=== PATIENT | female | born 1980 | race Two or more races ===

== ENCOUNTER 2019-11-16 13:03 | Emergency (ER) | payer MEDICAID ==
[~2019-11-16] VITALS: Ht 167.6 cm; Wt 81.6 kg
[2019-11-16] MEDS ORDERED: Tetanus/Diptheria/Pertussis IM ONE (13:30)
[2019-11-16] MEDS ORDERED: Lidocaine 2% MPF 5ml Vial INJ ONE (13:30)
[2019-11-16 13:35] VITALS: BP 117/69
[2019-11-16] MEDS ORDERED: Bacitracin Oint UD TOPIC ONE (14:15)
[2019-11-16] MEDS ORDERED: Tylenol #3 tab (300mg/30mg) ORAL ONE (14:15)
--- NOTE | 2019-11-16 14:19 | Emergency Room Report ---
History of Present Illness General Chief Complaint: Laceration Source: Patient Present Illness HPI 39 YO Female presents to the ED c/o 11/01 in severity pain with open laceration to the left index finger sustatined earlier today when cleaning a kitchen knife. Pt. denies taking blood thinning medications. She denies paresthesias or loss of gross motor movement of the affected finger. Pt. reports pain exacerbated with palpation. She said her last Tdap was in 2004. She is right hand dominant. The injury was unintentional. No other aggravating or relieving factors at this time. 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 Patient History Past Medical History: see triage record Past Surgical History: none Pertinent Family History: none Last Menstrual Period: 11/18/2019 Now: No Reviewed Nursing Documentation: PMH: Agreed; PSxH: Agreed Nursing Documentation-PMH Hx Asthma: Yes Review of Systems All Other Systems: negative except mentioned in HPI Physical Exam Vital Signs Date Time Temp Pulse Resp B/P (MAP) Pulse Ox O2 Delivery O2 Flow Rate FiO2 11/16/19 13:08 98.2 92 18 112/55 (74) 99 Room Air Sp02 EP Interpretation: reviewed, normal General Appearance: no apparent distress, alert, GCS 15, non-toxic Head: normocephalic, atraumatic Eyes: bilateral eye normal inspection, bilateral eye PERRL ENT: hearing grossly normal, normal voice Neck: full range of motion Respiratory: lungs clear, normal breath sounds, speaking full sentences Cardiovascular #1: regular rate, rhythm, normal capillary refill Musculoskeletal: normal range of motion, gait/station normal, non-tender Neurologic: alert, motor strength/tone normal, oriented x3, sensory intact, responsive, speech normal, grossly normal Psychiatric: judgement/insight normal Skin: laceration Procedures Laceration/Wound Repair Laceration/Wound Repair : Consent: Verbal Wound Location: upper extremity - LEFt index finger Wound Length (cm): 2 Wound Explored: clean Irrigated w/ Saline (ccs): 500 Anesthesia: 1% Lidocaine Volume Anesthetic (ccs): 5 Wound Repaired With: sutures Suture Size/Type: 5:0 Number of Sutures: 4 Layer Closure?: No Sterile Dressing Applied?: Yes Splint Applied?: Yes Type of Splint Applied: Left index finger splint Sling Applied?: No Patient Tolerated: Well Complications: None Medical Decision Making PA Attestation Dr. Angel is my supervising Physician whom patient management has been discussed with. Diagnostic Impression: Primary Impression: Laceration ER Course 39 YO Female presents to the ED c/o 11/01 in severity pain with open laceration to the left index finger sustatined earlier today when cleaning a kitchen knife. Pt. denies taking blood thinning medications. She denies paresthesias or loss of gross motor movement of the affected finger. Pt. reports pain exacerbated with palpation. She said her last Tdap was in 2004. She is right hand dominant. The injury was unintentional. No other aggravating or relieving factors at this time. Ddx considered but are not limited to laceration, tendon injury, cellulitis, amputation Vital signs: are WNL, pt. is afebrile H&PE are most consistent with: Left index finger laceration approx 3 cm in length ORDERS: none required at this time, the diagnosis is clinical ED INTERVENTIONS: -Tetanus vaccine was administered as pt. vaccination status was unknown. - The wound was copiously irrigated with normal saline, and explored for foreign body for which no FB was found. - pt. is anesthetized with 1%lidocaine - The wound was approximated and closed using 4 interrupted 5.0 Ethilon sutures. -Bacitracin and sterile dressing is applied. - Finger Splint applied to the Left index finger by echocardiography technologist. Pt. remains neurovascularly intact. Discussed with patient: That we make every effort to approximate the laceration as best as we can so that scarring will be as cosmetically pleasing as possible with our limited cosmetic skill set in the Emergency dept. Regardless of our best efforts there will be scarring after laceration repair. The extent of scarring is unknown at this time. DISCHARGE: At this time pt. is stable for d/c to home. Will provide printed patient care instructions, and any necessary prescriptions. Care plan and follow up instructions have been discussed with the patient prior to discharge. Last Vital Signs Date Time Temp Pulse Resp B/P (MAP) Pulse Ox O2 Delivery O2 Flow Rate FiO2 11/16/19 13:35 98.2 83 19 117/69 98 Room Air Disposition: HOME, SELF-CARE Condition: Stable Scripts Acetaminophen With Codeine (T#3) (TYLENOL #3 TAB*) Y Tab 1 TAB ORAL Q8HR PRN for For Pain, #9 TAB Prov: Nallely Colon 11/16/19 Bacitracin (Bacitracin) 28.4 Gm Oint...g. 1 APPLIC TOPIC THREE TIMES A DAY, #28.3 GM Prov: Nallely Colon 11/16/19 Cephalexin* (KEFLEX*) 500 Mg Capsule 500 MG ORAL EVERY 12 HOURS for 7 Days, #14 CAP 0 Refills Prov: Nallely Colon 11/16/19 Referrals: NOT CHOSEN IPA/,REFERRING (PCP) Edilberto Moyer [facility] Patient Instructions: Laceration Care, Adult Additional Instructions: Take medications as directed. Sutures to be removed in 14 days Do not drink alcohol, drive, or operate heavy machinery while taking Tylenol # 3 as this may cause drowsiness. Follow up with a Primary Care Provider in 3-5 days, even if your symptoms have resolved. --Please review list of primary care clinics, if you do not already have a primary care provider Return sooner to ED if new symptoms occur, or current symptoms become worse. - Please note that this Emergency Department Report was dictated using [employer]'scircular stuffer technology software, occasionally this can lead to erroneous entry secondary to interpretation by the dictation equipment. Nallely Colon Nov 16, 2019 14:19
[2019-11-16] MEDS ORDERED: ACETAMINOPHEN-1 EAC1 ORAL (14:20)
[2019-11-16] MEDS ORDERED: BACITRACIN15 GM TOPIC (14:20)
[2019-11-16] MEDS ORDERED: CEPHALEXIN500 MG ORAL (14:20)
[2019-11-16 14:39] VITALS: BP 126/72
== END 2019-11-16 14:40 | disposition home or self-care (01) ==
LOC: EMR 13:24
DX: S61.211A Laceration without foreign body of left index finger without damage to nail, initial encounter (principal); Z23 Encounter for immunization; W26.0XXA Contact with knife, initial encounter; Y92.9 Unspecified place or not applicable
CPT/HCPCS: 12001; 90471; 90715; Z7502; 99283

== ENCOUNTER 2019-11-30 13:41 | Emergency (ER) | payer MEDICAID ==
[~2019-11-30] VITALS: Ht 154.9 cm; Wt 81.6 kg
[~2019-11-30 13:41] MED LIST: ACETAMINOPHEN-1 EAC1 ORAL; BACITRACIN15 GM TOPIC; CEPHALEXIN500 MG ORAL
[2019-11-30 14:21] VITALS: BP 102/61
--- NOTE | 2019-11-30 14:22 | NUR ---
ED Nurse Note: Patient presents to ER due to suture removal from the left index finger. Slight swelling and redness noted. No red streaks noted from the wound. Patient reports tenderness on the affected finger with fever x 2 days. Patient has been using inhaler every 4hrs for the past 3-4 days and having bodyache. Reports no cough or SOB with exertion. RN able to hear audible, abnormal breath sounds, tight /wheezing. Pulse oximetry reading on room air was 100 with RR 19. Placed patient on ekg monitor tech. Bed in lowest position.
--- NOTE | 2019-11-30 14:45 | NUR ---
ED Nurse Note: Dr. Mosquera notified that patient has been using inhaler every 4hr for the past 3 days, fever (taking Tylenol, last taken 0630), bodyache.
[2019-11-30] MEDS ORDERED: Doxycycline Monohydrate 100mg ORAL ONE (15:00)
[2019-11-30 15:02] LABS: ANION GAP 11 mmol/L (5-15); BLOOD UREA NITROGEN 16 mg/dL (7-18); CALCIUM 8.1 MG/DL (8.5-10.1); CARBON DIOXIDE 22 MMOL/L (21-32); CHLORIDE 107 MMOL/L (98-107); CREATININE 0.7 MG/DL (0.55-1.30); POTASSIUM 4.4 MMOL/L (3.5-5.1); SODIUM 140 MMOL/L (136-145)
[2019-11-30 15:07] LABS: ALANINE AMINOTRANSFERASE 17 U/L (12-78); ALBUMIN 3.6 G/DL (3.4-5.0); ALKALINE PHOSPHATASE 79 U/L (46-116); ASPARTATE AMINO TRANSFERASE 23 U/L (15-37); BILIRUBIN,TOTAL 0.2 MG/DL (0.2-1.0)
--- NOTE | 2019-11-30 15:07 | NUR ---
ED Nurse Note: Checked with MD and will wait for result before administering med.
[2019-11-30 15:11] LABS: BASOPHILS % (AUTO) 1.1 % (0.0-2.0); EOSINOPHILS % (AUTO) 5.9 % (0.0-3.0); HEMATOCRIT 38.8 % (37.0-47.0); HEMOGLOBIN 12.3 G/DL (12.0-16.0); LYMPHOCYTES % (AUTO) 25.6 % (20.0-45.0); MEAN CORPUSCULAR VOLUME 84 FL (80-99); MONOCYTES % (AUTO) 5.2 % (1.0-10.0); NEUTROPHILS % (AUTO) 62.4 % (45.0-75.0); PLATELET COUNT 352 K/UL (150-450); RED BLOOD COUNT 4.62 M/UL (4.20-5.40); RED CELL DISTRIBUTION WIDTH 13.7 % (11.6-14.8); WHITE BLOOD COUNT 7.5 K/UL (4.8-10.8)
--- NOTE | 2019-11-30 15:12 | Emergency Room Report ---
History of Present Illness General Chief Complaint: Asthma Source: Patient Present Illness HPI This patient has 2 separate complaints. The patient states that 2 weeks ago she suffered a laceration to her left index finger. She had sutures placed at that time. It has been 14 days and she has not had the sutures removed yet. She states that she is having pain in her finger and has developed some redness. She also states that for the past 3 days she has noted body aches, cough and fatigue. She does have a history of asthma. She states she has had fever today. She did take Tylenol earlier today. She states that she does not know of any specific COVID-19 contacts. There are no other family members with any symptoms. She has been using her home albuterol inhaler. She still feels short of breath at times. She denies headache or neck pain. She denies weakness. She denies chest pain. She denies abdominal pain. She has nausea or vomiting. She has no other complaints. 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 Patient History Past Medical History: see triage record, asthma Social History: Denies: smoking, alcohol use, drug use Last Menstrual Period: 11/02/19 Now: No Reviewed Nursing Documentation: PMH: Agreed; PSxH: Agreed Nursing Documentation-PMH Past Medical History: No History, Except For Hx Asthma: Yes Review of Systems All Other Systems: negative except mentioned in HPI Physical Exam Vital Signs Date Time Temp Pulse Resp B/P (MAP) Pulse Ox O2 Delivery O2 Flow Rate FiO2 11/30/19 13:50 99.0 87 22 104/66 (79) 96 Room Air Sp02 EP Interpretation: reviewed, normal General Appearance: no apparent distress, alert, GCS 15, non-toxic Head: normocephalic, atraumatic Eyes: bilateral eye normal inspection, bilateral eye PERRL ENT: hearing grossly normal, normal pharynx, no angioedema, normal voice Neck: full range of motion, supple/symm/no masses Respiratory: chest non-tender, no respiratory distress, no retraction, no accessory muscle use, speaking full sentences, wheezing - Slight wheezing in the R. Lung throughout. Cardiovascular #1: regular rate, rhythm, no edema Gastrointestinal: normal bowel sounds, non tender, soft, non-distended, no guarding, no rebound Rectal: deferred Musculoskeletal: back normal, normal range of motion, gait/station normal, non- tender Neurologic: alert, motor strength/tone normal, oriented x3, sensory intact, responsive, speech normal Psychiatric: judgement/insight normal, memory normal, mood/affect normal, no suicidal/homicidal ideation Skin: other - L. index finger sutures in place, a small amount of erythema around proximal aspect of sutures (see photo in EMR) Medical Decision Making Diagnostic Impression: Primary Impression: Cellulitis Additional Impression: Asthma exacerbation ER Course This patient has a early cellulitis developing at the location of the previous laceration that was sutured 14 days ago. The erythema is only slightly surrounding the sutures. The sutures were removed and the wound was soaked warm water. The patient was given oral doxycycline. She also had some wheezing on her lung exam. She is given albuterol nebulizer treatment. Chest x -ray was within normal limits. Given the patient's respiratory symptoms and her presentation during a COVID-19 pandemic, a rapid COVID-19 test was obtained and was negative. The patient then underwent albuterol nebulizer treatment. Patient's oxygen saturation was 100% on room air during her ED course. Overall , the patient was well-appearing and nontoxic without any evidence of respiratory distress. The patient cellulitis is mild. I will place the patient on a course of antibiotics for the finger cellulitis. She is also given very close return precautions. Given the infection, I will not place the patient on a course of steroids for her asthma, as her asthma is very mild. Overall, the patient is well-appearing. She is given close close return precautions and follow-up instructions. This patient was evaluated in the context of the global COVID-19 pandemic, which necessitated consideration that the patient might be at risk for infection with the [id number] virus that causes COVID-19. Institutional protocols and algorithms that pertain to the evaluation of patients at risk for COVID-19 and the state of rapid change based on information released by multiple regulatory bodies including the CDC and federal and state organizations. These policies and algorithms were followed during the patient' s care in the ED. Laboratory Tests Test 11/30/19 14:20 White Blood Count 7.5 K/UL (4.8-10.8) Red Blood Count 4.62 M/UL (4.20-5.40) Hemoglobin 12.3 G/DL (12.0-16.0) Hematocrit 38.8 % (37.0-47.0) Mean Corpuscular Volume 84 FL (80-99) Mean Corpuscular Hemoglobin 26.5 PG (27.0-31.0) L Mean Corpuscular Hemoglobin Concent 31.6 G/DL (32.0-36.0) L Red Cell Distribution Width 13.7 % (11.6-14.8) Platelet Count 352 K/UL (150-450) Mean Platelet Volume 5.9 FL (6.5-10.1) L Neutrophils (%) (Auto) 62.4 % (45.0-75.0) Lymphocytes (%) (Auto) 25.6 % (20.0-45.0) Monocytes (%) (Auto) 5.2 % (1.0-10.0) Eosinophils (%) (Auto) 5.9 % (0.0-3.0) H Basophils (%) (Auto) 1.1 % (0.0-2.0) Sodium Level 140 MMOL/L (136-145) Potassium Level 4.4 MMOL/L (3.5-5.1) Chloride Level 107 MMOL/L (98-107) Carbon Dioxide Level 22 MMOL/L (21-32) Anion Gap 11 mmol/L (5-15) Blood Urea Nitrogen 16 mg/dL (7-18) Creatinine 0.7 MG/DL (0.55-1.30) Estimated Glomerular Filtration Rate > 60 mL/min (>60) Glucose Level 124 MG/DL (74-106) H Calcium Level 8.1 MG/DL (8.5-10.1) L Total Bilirubin 0.2 MG/DL (0.2-1.0) Aspartate Amino Transferase (AST) 23 U/L (15-37) Alanine Aminotransferase (ALT) 17 U/L (12-78) Alkaline Phosphatase 79 U/L (46-116) Total Protein 7.3 G/DL (6.4-8.2) Albumin 3.6 G/DL (3.4-5.0) Globulin 3.7 g/dL Albumin/Globulin Ratio 1.0 (1.0-2.7) Human Chorionic Gonadotropin, Qual Pending Microbiology Date/Time Source Procedure Growth Status 11/30/19 14:33 Nasopharynx SARS-CoV-2 RdRp Gene Assay - Final Complete Rhythm Strip Diag. Results EP Interpretation: yes Rate: 70's Rhythm: NSR, no PVC's, no ectopy Chest X-Ray Diagnostic Results Chest X-Ray Diagnostic Results : Chest X-Ray Ordered: Yes # of Views/Limited/Complete: 1 View Indication: Shortness of Breath EP Interpretation: Yes Interpretation: no consolidation, no effusion, no pneumothorax, no acute cardiopulmonary disease Impression: No acute disease Electronically Signed by: Aisha Mosquera DO Last Vital Signs Date Time Temp Pulse Resp B/P (MAP) Pulse Ox O2 Delivery O2 Flow Rate FiO2 11/30/19 14:22 76 21 Room Air 11/30/19 14:21 97.9 102/61 99 Status: improved Disposition: HOME, SELF-CARE Condition: Improved Referrals: NOT CHOSEN IPA/MD,REFERRING (PCP) Patient Instructions: Asthma, Adult Aisha Mosquera DO Nov 30, 2019 15:12
[2019-11-30] MEDS ORDERED: Albuterol ud Inhalation HHN ONE (15:30)
--- NOTE | 2019-11-30 15:39 | NUR ---
ED Nurse Note: The sutures from left index finger removed by Luis TABARES and soaked the affected finger in warm water as ordered. RT at bedside and providing breathing tx.
[2019-11-30 15:41] VITALS: BP 99/64
[2019-11-30] MEDS ORDERED: ALBUTEROL2.5 MG/3 M HHN (15:52)
[2019-11-30] MEDS ORDERED: ALBUTEROL SULF8.5 G1 INH (15:52)
[2019-11-30] MEDS ORDERED: DOXYCYCLINE MO100 MG ORAL (15:52)
--- NOTE | 2019-11-30 16:10 | NUR ---
ED Nurse Note: Patient reports feeling better with breathing after tx. Patient has regular, unlabored breathing noted with pulse oximetry reading >94%. No audible abnormal breath sounds noted. Skin remained pink. Dried left index finger and applied bandage as ordered.
[2019-11-30 16:12] VITALS: BP 108/62
--- NOTE | 2019-11-30 16:14 | NUR ---
ED Nurse Note: No 2019 Novel Munoz Virus test cancled at this time per ERMD. Patient is being dischraged from medical care. Patient reports breathing better at this time. No audible abnormal breath sounds noted. D/C instruction given and prescription sent electronically. All questions were answered. Patient ambulated out with steady gait with all her belongings.
--- NOTE | 2019-11-30 16:26 | Diagnostic Imaging Report ---
Indication: Cough Technique: One view of the chest Comparison: none Findings: Lungs and pleural spaces are clear. Heart size is normal. Impression: No acute process
== END 2019-11-30 16:20 | disposition home or self-care (01) ==
LOC: EMR 14:20
DX: S61.211A Laceration without foreign body of left index finger without damage to nail, initial encounter (principal); L03.012 Cellulitis of left finger; J45.901 Unspecified asthma with (acute) exacerbation; X58.XXXA Exposure to other specified factors, initial encounter; Y92.9 Unspecified place or not applicable
CPT/HCPCS: 36415; 71045; 80053; 84703; 85025; 94640; U0002; Z7502; 99284

== ENCOUNTER 2020-02-27 15:45 | Emergency (ER) | payer MEDICAID ==
[~2020-02-27] VITALS: Ht 157.5 cm; Wt 82.6 kg
[~2020-02-27 15:45] MED LIST changes: +ALBUTEROL SULF8.5 G1 INH; +ALBUTEROL2.5 MG/3 M HHN; +DOXYCYCLINE MO100 MG ORAL
[2020-02-27 16:00] VITALS: BP 118/68
[2020-02-27] MEDS ORDERED: Albuterol/Ipratropium 3ml neb HHN SCH (17:15)
--- NOTE | 2020-02-27 17:29 | Diagnostic Imaging Report ---
Indication: Shortness of breath, asthma Technique: One view of the chest Comparison: 2019 Findings: Lungs and pleural spaces are clear. Heart size is normal. 6 no significant interim change Impression: No acute process
--- NOTE | 2020-02-27 17:36 | Emergency Room Report ---
History of Present Illness General Chief Complaint: Asthma Source: Patient Present Illness HPI 39-year-old female with history of asthma currently taking albuterol here complaining of 3 days of with worsening asthma. Also complains of diarrhea. Denies any fever chills, abdominal pain, nausea vomiting. Reports her albuterol inhaler has not been helping her in the past few days. Denies coming contact with anyone who is positive for call back. Reports that she had a negative flu test 2 months ago. Denies tobacco smoke, drug use, alcohol intake. Denies . Has not taken medication for symptom relief. 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 COVID-19 Screening: Negative COVID-19 COVID-19 Testing Source: 2WKS AGO @ [facility] [place] Patient History Past Medical History: see triage record Past Surgical History: none Pertinent Family History: none Last Menstrual Period: ON IT Now: No Immunizations: UTD Reviewed Nursing Documentation: PMH: Agreed; PSxH: Agreed Nursing Documentation-PMH Hx Asthma: Yes Review of Systems All Other Systems: negative except mentioned in HPI Physical Exam Vital Signs Date Time Temp Pulse Resp B/P (MAP) Pulse Ox O2 Delivery O2 Flow Rate FiO2 02/27/20 15:50 98.4 81 22 112/66 (81) 96 Room Air 02/27/20 16:00 98 Sp02 EP Interpretation: reviewed, normal General Appearance: no apparent distress, alert, GCS 15, non-toxic Head: normocephalic, atraumatic Eyes: bilateral eye normal inspection, bilateral eye PERRL ENT: hearing grossly normal, normal pharynx, no angioedema, normal voice Neck: full range of motion, supple/symm/no masses Respiratory: chest non-tender, lungs clear, normal breath sounds, no rhonchi, speaking full sentences, wheezing Cardiovascular #1: regular rate, rhythm, no edema Cardiovascular #2: 2+ carotid (R), 2+ carotid (L), 2+ radial (R), 2+ radial (L), 2+ dorsalis pedis (R), 2+ dorsalis pedis (L) Gastrointestinal: non tender, soft Rectal: deferred Genitourinary: no CVA tenderness Musculoskeletal: back normal, no calf tenderness Neurologic: alert, motor strength/tone normal, oriented x3, sensory intact, responsive, speech normal Psychiatric: judgement/insight normal, memory normal, mood/affect normal, no suicidal/homicidal ideation Skin: no rash Lymphatic: no adenopathy Medical Decision Making PA Attestation Diagnosis and treatment plans were reviewed and discussed with my supervising physician Dr. Dudley Diagnostic Impression: Primary Impression: Asthma exacerbation Additional Impression: URI (upper respiratory infection) ER Course 39-year-old female with history of asthma currently taking albuterol here complaining of 3 days of with worsening asthma. Also complains of diarrhea. Denies any fever chills, abdominal pain, nausea vomiting. Reports her albuterol inhaler has not been helping her in the past few days. Denies coming contact with anyone who is positive for call back. Reports that she had a negative flu test 2 months ago. Denies tobacco smoke, drug use, alcohol intake. Denies . Has not taken medication for symptom relief. Ddx considered but are not limited to: bronchitis, PNA, URI viral, bacterial bronchitis, coronavirus, asthma exacerbation Vital signs: are WNL, pt. is afebrile H&PE are most consistent with: Asthma exacerbation, URI ORDERS: Rapid covert test, chest x-ray, prednisone, Phenergan, azithromycin, albuterol ED INTERVENTIONS: 3 treatments breathing treatment DISCHARGE: At this time pt. is stable for d/c to home. Will provide printed patient care instructions, and any necessary prescriptions. Care plan and follow up instructions have been discussed with the patient prior to discharge. Patient take medication as directed, follow primary care provider, worsening symptoms return to the emergency room Chest X-Ray Diagnostic Results Chest X-Ray Diagnostic Results : Chest X-Ray Ordered: Yes # of Views/Limited/Complete: 1 View Indication: Shortness of Breath EP Interpretation: Yes VASQUEZ Xray: Interpretation reviewed, by supervising MD, and agrees with findings. Interpretation: no consolidation, no effusion, no pneumothorax Impression: No acute disease Electronically Signed by: Kelvin Yeung PA-C Last Vital Signs Date Time Temp Pulse Resp B/P (MAP) Pulse Ox O2 Delivery O2 Flow Rate FiO2 02/27/20 17:22 77 18 100 Room Air 21 02/27/20 16:00 98.4 118/68 Disposition: HOME, SELF-CARE Condition: Stable Scripts Promethazine Hcl (PROMETHAZINE HCL*) 6.25 Mg/5 Ml Syrup 5 ML ORAL Q6H, #120 ML 0 Refills Prov: Kelvin Sandy 02/27/20 Azithromycin* (ZITHROMAX*) 250 Mg Tablet 250 MG ORAL DAILY, #6 TAB 0 Refills Take two tables once daily for 1 day, then one tablet once daily for 4 days. Prov: Kelvin Sandy 02/27/20 Prednisone* (PREDNISONE*) 20 Mg Tablet 40 MG ORAL DAILY for 5 Days, #10 TAB Prov: Kelvin Sandy 02/27/20 Albuterol Sulfate (VENTOLIN HFA) 18 Gm Hfa.aer.ad 2 PUFFS INH EVERY 6 HOURS, #18 GM 0 Refills Prov: Kelvin Sandy 02/27/20 Patient Instructions: Asthma, Adult, Upper Respiratory Infection, Adult, Easy -to-Read Additional Instructions: Take medication as directed, follow-up with primary care provider, if worsening symptom return to the emergency room Kelvin Sandy Feb 27, 2020 17:36
[2020-02-27] MEDS ORDERED: PREDNISONE20 MG ORAL (17:37)
[2020-02-27] MEDS ORDERED: VENTOLIN HFA18 GM INH (17:37)
[2020-02-27] MEDS ORDERED: ZITHROMAX250 MG ORAL (17:37)
[2020-02-27] MEDS ORDERED: PROMETHAZI6.25 MG/1 ORAL (17:38)
[2020-02-27 17:53] VITALS: BP 127/69
== END 2020-02-27 17:53 | disposition home or self-care (01) ==
LOC: EMR 16:20
DX: J45.901 Unspecified asthma with (acute) exacerbation (principal); J06.9 Acute upper respiratory infection, unspecified; R19.7 Diarrhea, unspecified
CPT/HCPCS: 71045; 94640; U0002; Z7502; 99284; J7620

== ENCOUNTER 2020-03-23 15:20 | Emergency (ER) | payer MEDICAID ==
[~2020-03-23] VITALS: Ht 157.5 cm; Wt 81.6 kg
[~2020-03-23 15:20] MED LIST changes: +PREDNISONE20 MG ORAL; +PROMETHAZI6.25 MG/1 ORAL; +VENTOLIN HFA18 GM INH; +ZITHROMAX250 MG ORAL
[2020-03-23 15:31] VITALS: BP 115/77
--- NOTE | 2020-03-23 16:22 | Emergency Room Report ---
History of Present Illness General Chief Complaint: Asthma Source: Patient Present Illness HPI 39-year-old female with history of asthma who was recently here at [facility] for asthma exacerbation here complaining of another episode of asthma exacerbation. 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 Denies tobacco smoke or drug use. Reports that she now has brownish phlegm coming out. Last time patient was here beginning of February, breathing treatment was given and patient was discharged with prednisone and azithromycin. Denies any fever and chills, diarrhea, loss of taste and smell. Has not yet followed primary doctor reported she does not have one. Denies . Allergies: Coded Allergies: No Known Allergies (Unverified , 11/16/19) COVID-19 Screening Contact w/high risk pt: No Recent Travel to affected area: No Experienced COVID-19 symptoms?: No COVID-19 Testing performed [employer]UNA [employer]AT: No Patient History Past Medical History: see triage record Past Surgical History: none Pertinent Family History: none Now: No Immunizations: UTD Reviewed Nursing Documentation: PMH: Agreed; PSxH: Agreed Nursing Documentation-PMH Past Medical History: No History, Except For Hx Asthma: Yes Review of Systems All Other Systems: negative except mentioned in HPI Physical Exam Vital Signs Date Time Temp Pulse Resp B/P (MAP) Pulse Ox O2 Delivery O2 Flow Rate FiO2 03/23/20 15:23 98.8 102 19 115/77 (90) 96 Sp02 EP Interpretation: reviewed General Appearance: no apparent distress, alert, GCS 15, non-toxic Head: normocephalic, atraumatic ENT: hearing grossly normal, normal pharynx, no angioedema, normal voice Neck: full range of motion, supple/symm/no masses Respiratory: chest non-tender, normal breath sounds, no rhonchi, speaking full sentences, wheezing - Diffuse wheezing Cardiovascular #1: regular rate, rhythm, no edema Cardiovascular #2: 2+ carotid (R), 2+ carotid (L), 2+ radial (R), 2+ radial (L), 2+ dorsalis pedis (R), 2+ dorsalis pedis (L) Gastrointestinal: normal bowel sounds, non tender, soft, non-distended, no guarding, no rebound Genitourinary: no CVA tenderness Musculoskeletal: back normal, no calf tenderness Neurologic: alert, motor strength/tone normal, oriented x3, sensory intact, responsive, speech normal Psychiatric: judgement/insight normal, memory normal, mood/affect normal, no suicidal/homicidal ideation Skin: no rash Lymphatic: no adenopathy Procedures Critical Care Time Critical Care Time Total critical care time; approximately 30 minutes. Due to a high probability of clinically significant, life threatening deterioration, the patient required my highest level of preparedness to intervene emergently and I personally spent this critical care time directly and personally managing the patient. This critical care time included obtaining a history; examining the patient; pulse oximetry; ordering and reviewing of studies; arranging urgent treatment with development of a management plan; evaluation of patient's response to treatment; frequent reassessment; and, discussions with other providers. This critical care time was performed to assess and manage the high probability of imminent, life-threatening deterioration that could result in multiorgan failure it was exclusive of separate billable procedures and treating other patients and teaching time. Please see MDM section and the rest of the note for further information on patient assessment and treatment. Medical Decision Making PA Attestation All my diagnosis and treatment plans were reviewed ad discussed with my supervising physician Dr. Malik Diagnostic Impression: Primary Impression: Asthma exacerbation Additional Impression: URI (upper respiratory infection) ER Course 39-year-old female with history of asthma who was recently here at [facility] for asthma exacerbation here complaining of another episode of asthma exacerbation. 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 Denies tobacco smoke or drug use. Reports that she now has brownish phlegm coming out. Last time patient was here beginning of February, breathing treatment was given and patient was discharged with prednisone and azithromycin. Denies any fever and chills, diarrhea, loss of taste and smell. Has not yet followed primary doctor reported she does not have one. Denies . Ddx considered but are not limited to: bronchitis, PNA, URI viral, bacterial bronchitis, coronavirus pneumonia, asthma exacerbation Vital signs: are WNL, pt. is afebrile H&PE are most consistent with: asthma exacerbation, URI ORDERS: Chest x-ray, rapid Covid, prednisone, Augmentin, Phenergan, albuterol ED INTERVENTIONS: 3 3 treatments of albuterol ipratropium, dexamethasone IM DISCHARGE: At this time pt. is stable for d/c to home. Will provide printed patient care instructions, and any necessary prescriptions. Care plan and follow up instructions have been discussed with the patient prior to discharge. Take medication as directed, follow with your primary care provider for further evaluation referral to tie presser due to your numbers asthma exacerbation in the past few months. If worsening symptoms return to the emergency room Chest X-Ray Diagnostic Results Chest X-Ray Diagnostic Results : Chest X-Ray Ordered: Yes # of Views/Limited/Complete: 1 View Indication: Shortness of Breath EP Interpretation: Yes VASQUEZ Xray: Interpretation reviewed, by supervising MD, and agrees with findings. Interpretation: no consolidation, no effusion, no pneumothorax Impression: No acute disease Electronically Signed by: Kelvin Hyattibhenry Text Procedure: XRAY Chest 1v Indication: Shortness of breath Technique: One view of the chest Comparison: 02/27/2020 Findings: Lungs and pleural spaces are clear. Heart size is normal. 16 is no significant interim change Impression: No acute process Last Vital Signs Date Time Temp Pulse Resp B/P (MAP) Pulse Ox O2 Delivery O2 Flow Rate FiO2 03/23/20 15:31 102 19 03/23/20 15:31 98.8 115/77 96 Disposition: HOME, SELF-CARE Condition: Stable Referrals: NOT CHOSEN IPA/,REFERRING (PCP) Patient Instructions: Asthma, Adult, Upper Respiratory Infection, Adult, [id number] Additional Instructions: Take medication as directed, follow with your primary care provider for further evaluation referral to tie presser due to your numbers asthma exacerbation in the past few months. If worsening symptoms return to the emergency room Kelvin Sandy Mar 23, 2020 16:22
--- NOTE | 2020-03-23 16:47 | Diagnostic Imaging Report ---
Indication: Shortness of breath Technique: One view of the chest Comparison: 02/27/2020 Findings: Lungs and pleural spaces are clear. Heart size is normal. 16 is no significant interim change Impression: No acute process
[2020-03-23] MEDS: Albuterol/Ipratropium 3ml neb HHN SCH ×2 (17:00→17:01)
[2020-03-23] MEDS ORDERED: AUGMENTIN 875-1 EAC1 ORAL (17:02)
[2020-03-23] MEDS ORDERED: PREDNISONE20 MG ORAL (17:02)
[2020-03-23] MEDS ORDERED: VENTOLIN HFA18 GM INH (17:02)
[2020-03-23] MEDS ORDERED: PROMETHAZI6.25 MG/1 ORAL (17:02)
[2020-03-23 17:35] VITALS: BP 123/79
== END 2020-03-23 17:35 | disposition home or self-care (01) ==
LOC: EMR 15:41
DX: J45.901 Unspecified asthma with (acute) exacerbation (principal); J06.9 Acute upper respiratory infection, unspecified
CPT/HCPCS: 71045; 94640; 96372; J1100; U0002; Z7502; 99291; J7620

== ENCOUNTER 2020-04-27 09:30 | Emergency (ER) | payer MEDICAID ==
[~2020-04-27] VITALS: Ht 157.5 cm; Wt 81.6 kg
[~2020-04-27 09:30] MED LIST changes: +AUGMENTIN 875-1 EAC1 ORAL
[2020-04-27 10:24] VITALS: BP 109/70
--- NOTE | 2020-04-27 10:28 | NUR ---
ED Nurse Note:pt. came from home with c/o fevers and respiratory infection with chest congestion for 1 week, no fever on arrival
[2020-04-27] MEDS ORDERED: Albuterol/Ipratropium 3ml neb HHN ONE (10:30)
--- NOTE | 2020-04-27 10:40 | NUR ---
ED Nurse Note:covid test sent to labs, given PO test
[2020-04-27] MEDS ORDERED: PROMETHAZI6.25 MG/1 ORAL (11:49)
[2020-04-27] MEDS ORDERED: PREDNISONE20 MG ORAL (11:49)
[2020-04-27] MEDS ORDERED: VENTOLIN HFA18 GM INH (11:49)
[2020-04-27] MEDS ORDERED: ZITHROMAX250 MG ORAL (11:49)
[2020-04-27 12:10] VITALS: BP 111/72
--- NOTE | 2020-04-27 12:10 | NUR ---
ED Nurse Note: Pt cleared by health care Provider for discharge. DC instructions/prescription was given and explained to pt and verbalized understanding of teachings. All medical deviecs such as ID band removed. Pt is AAO x4, ambulatory and left with all personal belongings.
--- NOTE | 2020-04-30 14:12 | Emergency Room Report ---
History of Present Illness General Chief Complaint: Upper Respiratory Illness Source: Patient Present Illness HPI 39-year-old female presents with cough, shortness of breath. X1 week. History of asthma. Cough is dry. Denies fevers or chills. Does not have an inhaler at this time. Denies sick contacts or recent travel. Denies any known close contacts with Covid. No other aggravating relieving factors. Denies any other associated symptoms Allergies: Coded Allergies: No Known Allergies (Unverified , 11/16/19) COVID-19 Screening Contact w/high risk pt: No Recent Travel to affected area: No Experienced COVID-19 symptoms?: Yes COVID-19 Testing performed DIRECTOR [employer]ATE [employer]ATEGY: No Patient History Past Medical History: asthma Past Surgical History: none Pertinent Family History: none Social History: Denies: smoking, alcohol use, drug use Now: No Immunizations: UTD Reviewed Nursing Documentation: PMH: Agreed; PSxH: Agreed Nursing Documentation-PMH Past Medical History: No History, Except For Hx Asthma: Yes Review of Systems All Other Systems: negative except mentioned in HPI Physical Exam Vital Signs Date Time Temp Pulse Resp B/P (MAP) Pulse Ox O2 Delivery O2 Flow Rate FiO2 04/27/20 10:11 98.6 76 16 109/70 (83) 98 Room Air 04/27/20 11:32 21 Sp02 EP Interpretation: reviewed, normal General Appearance: no apparent distress, alert, GCS 15, non-toxic Head: normocephalic, atraumatic Eyes: bilateral eye normal inspection, bilateral eye PERRL ENT: hearing grossly normal, normal pharynx, no angioedema, normal voice Neck: full range of motion, supple/symm/no masses Respiratory: chest non-tender, normal breath sounds, speaking full sentences, wheezing Cardiovascular #1: regular rate, rhythm, no edema Cardiovascular #2: 2+ carotid (R), 2+ carotid (L), 2+ radial (R), 2+ radial (L), 2+ dorsalis pedis (R), 2+ dorsalis pedis (L) Gastrointestinal: normal bowel sounds, non tender, soft, non-distended, no guarding, no rebound Rectal: deferred Genitourinary: normal inspection, no CVA tenderness Musculoskeletal: back normal, normal range of motion, gait/station normal, non- tender Neurologic: alert, motor strength/tone normal, oriented x3, sensory intact, responsive, speech normal Psychiatric: judgement/insight normal, memory normal, mood/affect normal, no suicidal/homicidal ideation Reflexes: 3+ bicep (R), 3+ bicep (L), 3+ tricep (R), 3+ tricep (L), 3+ knee (R), 3+ knee (L) Skin: no rash Lymphatic: no adenopathy Procedures Critical Care Time Critical Care Time i. I feel this is a highly complex case requiring extensive working including EKG/Rhythm strip, Xray/CT/US, Blood/urine lab work, repeat exams while in ED, and administration of strong opiates/narcotics for pain control, admission to hospital or close patient follow up. Total time: 30 min bedside evaluation and treatment excludes procedures (EKG). Reason for critical care: respiratory distress Possible complications: hypotension, hypertension, [place], shock, arrhythmias, metabolic acidosis, end organ damage, respiratory failure. Interventions: Covid swab, nebulizer treatment, prednisone, reassessment Course: Patient presenting with wheezing, shortness of breath. Asthma. Covid rapid negative. Given prednisone and breathing treatments. On reassessment symptoms improved. Wheezing resolved. Consultations: nursing staff, EMS, family Performed by: Dr Malik Tol[facility] well condition = improved j. because of unstable vital signs this patient had a condition that could potentially threaten life or limb. I feel this is a critical patient who required my full attention while patient was considered critical. Total Critical Care Time excluding procedures was greater than 35 minutes Medical Decision Making Diagnostic Impression: Primary Impression: Asthma exacerbation Qualified Codes: J45.901 - Unspecified asthma with (acute) exacerbation ER Course Hospital Course 39-year-old female presents to ED complaining of cough, wheezing Differential diagnoses include: URI, bronchitis, asthma/COPD, pneumonia Clinical course Patient placed on stretcher. After initial history and physical I ordered prednisone, rapid Covid. Covid negative. given breathing treatments with symptoms improved. Wheezing resolved on reassessment. Discussed findings with patient. Safe for discharge with close outpatient follow-up. I will provide referrals Diagnosis - asthma exacerbation Stable and discharged home with prescriptions for promethazine, prednisone, albuterol, zpack. Instructed to followup with PMD. Return to ED if symptoms recur or worsen Last Vital Signs Date Time Temp Pulse Resp B/P (MAP) Pulse Ox O2 Delivery O2 Flow Rate FiO2 04/27/20 12:10 98.6 73 17 111/72 100 Room Air 21 Status: improved Disposition: HOME, SELF-CARE Condition: Stable Scripts Promethazine Hcl (PROMETHAZINE HCL*) 6.25 Mg/5 Ml Syrup 5 ML ORAL Q6H, #120 ML 0 Refills Prov: Feng Malik MD 04/27/20 Prednisone* (PREDNISONE*) 20 Mg Tablet 40 MG ORAL DAILY for 5 Days, #10 TAB Prov: Feng Malik MD 04/27/20 Albuterol Sulfate (VENTOLIN HFA) 18 Gm Hfa.aer.ad 2 PUFFS INH EVERY 6 HOURS, #18 GM 0 Refills Prov: Fneg Malik MD 04/27/20 Azithromycin* (ZITHROMAX*) 250 Mg Tablet 250 MG ORAL DAILY, #6 TAB 0 Refills Take two tables once daily for 1 day, then one tablet once daily for 4 days. Prov: Feng Malik MD 04/27/20 Referrals: Edilberto Burgos [facility] Patient Instructions: Asthma, Adult, [id number] Feng Malik MD Apr 30, 2020 14:12
== END 2020-04-27 12:19 | disposition home or self-care (01) ==
LOC: EMR 10:18
DX: J45.901 Unspecified asthma with (acute) exacerbation (principal)
CPT/HCPCS: 94640; J7512; U0002; Z7502; 99283; J7620

== ENCOUNTER 2020-05-12 20:05 | Emergency (ER) | payer MEDICAID ==
[~2020-05-12] VITALS: Ht 157.5 cm; Wt 83.9 kg
[2020-05-12 20:10] VITALS: BP 160/99
--- NOTE | 2020-05-12 20:23 | Emergency Room Report ---
History of Present Illness General Chief Complaint: Asthma Source: Patient Present Illness HPI Disclaimer: Please note that this report is being documented using [employer] technology. This can lead to erroneous entry secondary to incorrect interpretation by the dictating instrument. HPI: 31-year-old female history of asthma presents for evaluation shortness of breath cough and wheezing. Symptoms present 1 week. She reports using her albuterol inhaler every 4 hours. She states this happens during the winter months. Treated for asthma exacerbation with antibiotics and steroids 3 to 4 weeks ago. Was tested negative for COVID-19 at that time. No other test. D enies contact with COVID-19 positive patients. Denies changes in sense or smell. Denies fever or chills. Reports nonproductive cough. Reports chest congestion. Denies chest pain, nausea, vomiting, diarrhea or other symptoms. PMH: Asthma PSH: Reviewed Allergies: Denied Social Hx: Reviewed Allergies: Coded Allergies: No Known Allergies (Unverified , 11/16/19) COVID-19 Screening Contact w/high risk pt: No Recent Travel to affected area: No Experienced COVID-19 symptoms?: Yes COVID-19 Testing performed LINGO CLEANER: Yes - 03/13 COVID-19 Screening: Negative COVID-19 COVID-19 Testing Source: [facility] Patient History Now: No Nursing Documentation-PMH Past Medical History: No History, Except For Hx Asthma: Yes Review of Systems All Other Systems: negative except mentioned in HPI Physical Exam Vital Signs Date Time Temp Pulse Resp B/P (MAP) Pulse Ox O2 Delivery O2 Flow Rate FiO2 05/12/20 20:09 98.2 94 24 162/127 (139) 99 Room Air General: Awake and alert, no acute distress HEENT: NC/AT. EOMI. Resp: Normal work of breathing, bilateral inspiratory expiratory wheezes. Nonproductive cough. No crackles. Skin: Intact. No abrasions, laceration or rash over the exposed skin MSK: Normal tone and bulk. Moving all extremities. No obvious deformity. Neuro: Awake and alert. Mentating appropriately Medical Decision Making Diagnostic Impression: Primary Impression: Asthma exacerbation ER Course Is a 39-year-old female presenting for evaluation of shortness of breath and cough. Differential includes is not limited to URI, allergic reaction, asthma exacerbation, pneumonia, bronchitis, COVID-19 infection, influenza among others. Most consistent with acute asthma exacerbation patient treated with prednisone, breathing treatments. Chest x-ray unremarkable. Patient states she is to be on inhaled corticosteroids but was able to refill these prescription after she got a new PMD. She is seeing a new PMD in 3 days. Will refill a short course of fluticasone. Instructed to return with new or worsening symptoms. Chest X-Ray Diagnostic Results Chest X-Ray Diagnostic Results : Chest X-Ray Ordered: Yes # of Views/Limited/Complete: 1 View Indication: Shortness of Breath EP Interpretation: Yes Interpretation: no consolidation, no effusion, no pneumothorax, no acute cardiopulmonary disease Impression: No acute disease Electronically Signed by: Electronically signed by Dr. David Angel MD Last Vital Signs Date Time Temp Pulse Resp B/P (MAP) Pulse Ox O2 Delivery O2 Flow Rate FiO2 05/12/20 20:09 98.2 94 24 162/127 (139) 99 Room Air Disposition: HOME, SELF-CARE Condition: Improved Scripts Fluticasone/Salmeterol (Advair 100-50 Diskus) 1 Each Blst.w.dev 1 PUFF INH EVERY 12 HOURS for 14 Days, #1 EA Prov: David Angel MD 05/12/20 Promethazine Hcl (PROMETHAZINE HCL*) 6.25 Mg/5 Ml Syrup 5 ML ORAL Q6H, #120 ML 0 Refills Prov: David Angel MD 05/12/20 Prednisone* (PREDNISONE*) 20 Mg Tablet 40 MG ORAL DAILY for 5 Days, #10 TAB Prov: David Angel MD 05/12/20 David Angel MD May 12, 2020 20:23
--- NOTE | 2020-05-12 20:52 | Diagnostic Imaging Report ---
INDICATION: Cough COMPARISON: 03/23/2020 FINDINGS: Single frontal view demonstrates a normal cardiomediastinal silhouette. No focal consolidation or clinically significant pneumothorax. No pleural effusions. The visualized osseous structures are within normal limits. No significant interval change compared to the prior study. IMPRESSION: No acute cardiopulmonary disease.
[2020-05-12] MEDS ORDERED: PREDNISONE20 MG ORAL (20:58)
[2020-05-12] MEDS ORDERED: PROMETHAZI6.25 MG/1 ORAL (21:01)
[2020-05-12] MEDS: Albuterol/Ipratropium 3ml neb HHN SCH ×4 (21:37→22:16)
[2020-05-12] MEDS ORDERED: ADVAIR 100-501 EACH INH (22:40)
[2020-05-12 22:50] VITALS: BP 157/86
== END 2020-05-12 22:50 | disposition home or self-care (01) ==
LOC: EMR 20:21
DX: J45.901 Unspecified asthma with (acute) exacerbation (principal); Z79.899 Other long term (current) drug therapy
CPT/HCPCS: 71045; 94640; J7512; U0002; Z7502; 99283; J7620

== ENCOUNTER 2020-05-22 12:20 | Emergency (ER) | payer MEDICAID ==
[~2020-05-22] VITALS: Ht 157.5 cm; Wt 82.6 kg
[~2020-05-22 12:20] MED LIST changes: +ADVAIR 100-501 EACH INH
--- NOTE | 2020-05-22 13:00 | NUR ---
ED Nurse Note: Pt came in to ER from home with complains of cough, weakness and fever, pt is aox4, calm and cooperative to care, per pt, her boyfriend got tested positive for covid today. Pt's VSS, on RA, breathing even and unlabored, afebrile on triage. pt was placed onbed, droplet isolation prec. in placed.
[2020-05-22 13:15] VITALS: BP 106/70
--- NOTE | 2020-05-22 14:02 | Emergency Room Report ---
History of Present Illness General Chief Complaint: General Complaint Source: Significant Other Present Illness HPI 40-year-old female with history of asthma presents to the emergency department complaining of fever of 103, cough and 4-10 severity body aches x3 days. Patient reports that her boyfriend had similar symptoms prior to hers and he just tested positive for COVID-19 today. Patient denies neck pain/stiffness. She denies productive cough. She denies chest pain, shortness of breath or wheezing. Patient denies having to use her inhaler. Denies ST, nasal congestion or rhinorrhea. She denies taking any medications prior to arrival. No other aggravating or relieving factors. Allergies: Coded Allergies: No Known Allergies (Unverified , 11/16/19) COVID-19 Screening Contact w/high risk pt: Yes Recent Travel to affected area: No Experienced COVID-19 symptoms?: Yes COVID-19 Screening: Negative COVID-19 Patient History Past Medical History: see triage record Past Surgical History: none Pertinent Family History: none Last Menstrual Period: 05/22/2020 Now: No Reviewed Nursing Documentation: PMH: Agreed; PSxH: Agreed Nursing Documentation-PMH Past Medical History: No History, Except For Hx Asthma: Yes Review of Systems All Other Systems: negative except mentioned in HPI Physical Exam Vital Signs Date Time Temp Pulse Resp B/P (MAP) Pulse Ox O2 Delivery O2 Flow Rate FiO2 05/22/20 12:47 97.9 88 19 106/70 (82) 96 Room Air Sp02 EP Interpretation: reviewed, normal General Appearance: no apparent distress, alert, GCS 15, non-toxic Head: normocephalic, atraumatic Eyes: bilateral eye normal inspection, bilateral eye PERRL ENT: hearing grossly normal, normal pharynx, normal voice Neck: full range of motion, no meningismus Respiratory: chest non-tender, lungs clear, normal breath sounds, no respiratory distress, no accessory muscle use, no wheezing, speaking full sentences Cardiovascular #1: regular rate, rhythm Musculoskeletal: normal range of motion, gait/station normal, non-tender Neurologic: alert, motor strength/tone normal, oriented x3, sensory intact, res ponsive, speech normal Psychiatric: judgement/insight normal Skin: no rash, normal color Lymphatic: no adenopathy Medical Decision Making PA Attestation Dr. Malik is my supervising Physician whom patient management has been discussed with. Diagnostic Impression: Primary Impression: URI (upper respiratory infection) Qualified Codes: J06.9 - Acute upper respiratory infection, unspecified Additional Impression: Exposure to COVID-19 virus ER Course 40-year-old female with history of asthma presents to the emergency department complaining of fever of 103, cough and 4-10 severity body aches x3 days. Patient reports that her boyfriend had similar symptoms prior to hers and he just tested positive for COVID-19 today. Patient denies neck pain/stiffness. She denies productive cough. She denies chest pain, shortness of breath or wheezing. Patient denies having to use her inhaler. Denies ST, nasal congestion or rhinorrhea. She denies taking any medications prior to arrival. No other aggravating or relieving factors. Ddx considered but are not limited to URI, pneumonia, PE, strep pharyngitis, meningitis, COVID-19 Vital signs: Pt. is afebrile, the remaining VS are WNL H&PE are most consistent with URI- no meningeal signs, oropharynx is not involved, no evidence of bacterial infection at this time. ORDERS: none required at this time, the diagnosis is clinical ED INTERVENTIONS: None required at this time. -I do not identify an emergent condition at this time. With current presentation, pt. is stable for close outpatient follow up and conservative treatment. D/w pt. to return promptly to ED with worsening or new symptoms.- Pt. verbalizes' understanding and agreement with proposed treatment plan. This patient was evaluated in the context of the global COVID-19 pandemic, which necessitated consideration that the patient might be at risk for infection with the SARS-COV-2 virus that causes COVID-19. Institutional protocols and algorithms that pertaining to the evaluation of patients at risk for COVID-19 are in a state of rapid change based on information released by multiple regulatory bodies including the CDC and federal and state organizations. These policies and algorithms were followed during the patient's care in the emergency department DISCHARGE: At this time pt. is stable for d/c to home. Will provide printed patient care instructions, and any necessary prescriptions. Care plan and follow up instructions have been discussed with the patient prior to discharge. Last Vital Signs Date Time Temp Pulse Resp B/P (MAP) Pulse Ox O2 Delivery O2 Flow Rate FiO2 05/22/20 13:15 97.9 19 106/70 96 Room Air 05/22/20 13:15 88 Status: improved Disposition: HOME, SELF-CARE Condition: Stable Scripts Guaifenesin/Dextromethorphan* (Guaifenesin Dm Syrup*) 5 Ml Syrup 5 ML ORAL Q6H PRN for FOR COUGH, #118 ML Prov: Nallely Colon 05/22/20 Acetaminophen* (TYLENOL EXTRA STRENGTH*) 500 Mg Tablet 500 MG ORAL Q6H PRN for Mild Pain/Temp > 100.5, #20 TAB 0 Refills Prov: Nallely Colon 05/22/20 Azithromycin* (ZITHROMAX*) 250 Mg Tablet 250 MG ORAL DAILY, #6 TAB 0 Refills Take two tables once daily for 1 day, then one tablet once daily for 4 days. Prov: Nallely Colon 05/22/20 Prednisone* (PREDNISONE*) 20 Mg Tablet 40 MG ORAL DAILY for 5 Days, #10 TAB Prov: Nallely Colon 05/22/20 Referrals: NOT CHOSEN IPA/MD,REFERRING (PCP) Patient Instructions: Medical Screening Exam Additional Instructions: ~ ~ An emergent medical condition has not been identified based on this patients presentation, exam and any necessary testing/imaging. The patient is determined to be stable for outpatient follow-up and management of symptoms by a primary care provider. STATUS: STABLE FOR OUTPATIENT TESTING AND TREATMENT FOR COVID-19, EMERGENCY DEPT. admission is not necessary at this time. Take medications as directed. Follow up with a Primary Care Provider in 3-5 days, even if your symptoms have resolved. --Please review list of primary care clinics, if you do not already have a primary care provider Return sooner to ED if new symptoms occur, or current symptoms become worse. - Please note that this Emergency Department Report was dictated using [employer] technology software, occasionally this can lead to erroneous entry secondary to interpretation by the dictation equipment. Nallely Colon May 22, 2020 14:02
[2020-05-22] MEDS ORDERED: PREDNISONE20 MG ORAL (14:04)
[2020-05-22] MEDS ORDERED: ZITHROMAX250 MG ORAL (14:04)
[2020-05-22] MEDS ORDERED: TYLENOL EXTRA500 MG ORAL (14:04)
[2020-05-22] MEDS ORDERED: GUAIFENESIN DM118 M1 ORAL (14:04)
[2020-05-22 14:10] VITALS: BP 115/75
--- NOTE | 2020-05-22 14:10 | NUR ---
ER DISCHARGE NOTE: Patient is cleared to be discharged per ERMD, pt is aox4, on room air, with stable vital signs. pt was given dc and prescription instructions, pt was able to verbalize understanding, pt id band removed. pt is able to ambulate with steady gait. pt took all belongings.
== END 2020-05-22 14:10 | disposition home or self-care (01) ==
LOC: EMR 13:18
DX: J06.9 Acute upper respiratory infection, unspecified (principal); Z20.828 Contact with and (suspected) exposure to other viral communicable diseases; J45.909 Unspecified asthma, uncomplicated
CPT/HCPCS: 99282